=== PATIENT | female | born 1990 | race Hispanic/Latino ===

== ENCOUNTER 2021-10-13 11:38 | Day surgery (SDC) | payer OTHER ==
[2021-10-13 12:22] VITALS: BMI 44.9
[2021-10-13] MEDS ORDERED: hydrALAZINE 20 MG/ML VIAL SLOW IVP PRN (13:10)
[2021-10-13] MEDS ORDERED: Acetaminophen/Codeine 30-300mg Tablet PO SCH (13:15)
== END 2021-10-13 14:05 | disposition home or self-care (01) ==
LOC: CSHLD/OP 11:38
PROVIDERS: ATTEND Student in an Organized Health Care Education/Training Program
DX: O99.891 Other specified diseases and conditions complicating pregnancy (principal); M54.50 Low back pain, unspecified; R10.2 Pelvic and perineal pain; O36.8130 Decreased fetal movements, third trimester, not applicable or unspecified; O99.013 Anemia complicating pregnancy, third trimester; D50.9 Iron deficiency anemia, unspecified; O99.283 Endocrine, nutritional and metabolic diseases complicating pregnancy, third trimester; E03.9 Hypothyroidism, unspecified; O34.219 Maternal care for unspecified type scar from previous cesarean delivery; O99.843 Bariatric surgery status complicating pregnancy, third trimester; Z3A.37 37 weeks gestation of pregnancy; Z79.899 Other long term (current) drug therapy; Z88.8 Allergy status to other drugs, medicaments and biological substances

== ENCOUNTER 2021-10-20 09:38 | Outpatient (CLI) | payer OTHER ==
[2021-10-20 11:15] LABS: Hemoglobin 12.1 g/dL (12.0-15.5); Mean Corpuscular HGB CONC 32.6 g/dL (32.0-36.0); Mean Corpuscular Hemoglobin 31.6 pg (27.0-33.0); Mean Corpuscular Volume 96.9 fl (81.6-98.3); Mean Platelet Volume 10.6 fl (7.4-10.4); Platelet Count 243 10x3/uL (150-450); RBC Distribution Width 13.3 % (11.5-14.5); Red Blood Cell (RBC) Count 3.83 10x6/uL (3.90-5.03); White Blood Cell (WBC) Count 8.2 10x3/uL (3.5-10.5)
[2021-10-20 12:05] LABS: HIV (1/2) Antibody/Antigen Non-Reactive (NonReactive); HIV 1/2 INDEX 0.09 S/CO (<1.00); Hep B Surf Ag Non-Reactive S/CO (NonReactive)
[2021-10-20 12:07] LABS: Syphilis Antibody Nonreactive (Nonreactive); Syphilis Antibody Index 0.16 S/CO (<1.00 Non-Reactive)
[2021-10-21 12:47] LABS: SARS-CoV-2 PCR by NAA Not Detected (NotDetected)
== END 2021-10-20 09:39 | disposition home or self-care (01) ==
LOC: CSHLAB 09:38
PROVIDERS: ATTEND Obstetrics & Gynecology
DX: Z01.812 Encounter for preprocedural laboratory examination (principal); Z20.822 Contact with and (suspected) exposure to COVID-19
CPT/HCPCS: 85027; 86780; 86850; 86900; 86901; 87340; 87389; U0003; U0005

== ENCOUNTER 2021-10-22 05:30 | Inpatient (IN) | payer OTHER ==
[2021-10-22 05:55] VITALS: BMI 44.9
[2021-10-22] MEDS ORDERED: Lactated Ringer's 1,000 ML IV SCH (05:55)
[2021-10-22] MEDS ORDERED: Bicitra 30 ML UDCUP PO PRN (05:55)
[2021-10-22] MEDS ORDERED: hydrALAZINE 20 MG/ML VIAL SLOW IVP PRN ×2 (05:55→10:40)
[2021-10-22] MEDS ORDERED: Promethazine HCl 25 MG/ML VIAL IM PRN ×3 (05:55→10:40)
[2021-10-22] MEDS ORDERED: Famotidine/PF 20 mg/2ml Vial SLOW IVP PRN (05:55)
[2021-10-22] MEDS ORDERED: Ondansetron PF 4 MG/2 ML Vial IVP PRN ×3 (05:55→10:40)
[2021-10-22] MEDS ORDERED: ceFAZolin 2 GM/Dextrose 50 ML 2 GM in Premix Bag 1 BAG IVPB SCH (06:15)
[2021-10-22] MEDS ORDERED: Morphine PF 10 MG/10 ML VIAL ONE (07:29)
[2021-10-22] MEDS ORDERED: Oxytocin 10 UNITS/ML VIAL ONE (07:29)
[2021-10-22] MEDS ORDERED: Dexamethasone 4 mg/ml Vial ONE (07:30)
[2021-10-22] MEDS ORDERED: Ketorolac Tromethamine 30 MG/ML VIAL ONE (07:30)
[2021-10-22] MEDS ORDERED: ePHEDrine Sulfate 50 MG/10 ML VIAL ONE (07:30)
[2021-10-22] MEDS ORDERED: Labetalol HCl 100 MG/20 ML VIAL ONE (07:53)
[2021-10-22] MEDS ORDERED: Tranexamic Acid 1,000 MG/10 ML VIAL ONE (08:22)
[2021-10-22] MEDS ORDERED: Naloxone HCl 0.4 mg/ml Vial IVP PRN ×2 (08:54)
[2021-10-22] MEDS ORDERED: Hydrocerin (Eucerin) Cream 120 gm Jar TOP PRN (08:54)
[2021-10-22] MEDS ORDERED: Promethazine HCl 25 MG SUPP PR PRN (08:54)
[2021-10-22] MEDS ORDERED: diphenhydrAMINE 50 MG/ML VIAL IVP PRN (08:54)
[2021-10-22] MEDS ORDERED: Naloxone HCl 0.4 mg/ml Vial IV PRN (08:54)
[2021-10-22] MEDS ORDERED: Communication Order-Pharmacy FS SCH (09:00)
[2021-10-22] MEDS ORDERED: diphenhydrAMINE 25 MG CAP PO PRN (10:40)
[2021-10-22] MEDS ORDERED: Simethicone Chewable 80 MG TAB PO PRN (10:40)
[2021-10-22] MEDS ORDERED: Acetaminophen 325 MG TAB PO PRN (10:40)
[2021-10-22] MEDS ORDERED: Bisacodyl 10 MG SUPP PR PRN (10:40)
[2021-10-22] MEDS ORDERED: Lanolin Ointment 7 GM TUBE TOP PRN (10:40)
[2021-10-22] MEDS ORDERED: Prenatal Vitamin 1 TAB PO SCH (11:00)
[2021-10-22] MEDS ORDERED: Docusate 100 MG CAP PO SCH (11:00)
[2021-10-22] MEDS ORDERED: Ferrous Sulfate 325 MG TAB PO SCH (11:00)
[2021-10-22] MEDS: Ketorolac Tromethamine 30 MG/ML VIAL IVP PRN ×2 (14:16→19:35)
[2021-10-22] MEDS ORDERED: Meperidine HCl/PF 25 MG/ML VIAL SLOW IVP PRN (14:30)
[2021-10-22] MEDS ORDERED: Meperidine HCl/PF 25 MG/ML VIAL SLOW IVP SCH ×2 (15:00)
[2021-10-22] MEDS: Docusate 100 MG CAP PO SCH (20:45)
[2021-10-22] MEDS: HYDROcodone/Acetaminophen 5/325 mg Tablet PO PRN (20:45)
[2021-10-22] MEDS: Ferrous Sulfate 325 MG TAB PO SCH (20:53)
[2021-10-22] MEDS ORDERED: Zolpidem Tartrate 5 MG TAB PO PRN (21:00)
[2021-10-22] MEDS ORDERED: HYDROcodone/Acetaminophen 5/325 mg Tablet PO PRN (21:00)
[2021-10-23] MEDS: HYDROcodone/Acetaminophen 5/325 mg Tablet PO PRN ×6 (00:49→21:48)
[2021-10-23 06:20] LABS: Hemoglobin 9.1 g/dL (12.0-15.5); Mean Corpuscular HGB CONC 32.3 g/dL (32.0-36.0); Mean Corpuscular Hemoglobin 31.3 pg (27.0-33.0); Mean Corpuscular Volume 96.9 fl (81.6-98.3); Mean Platelet Volume 10.2 fl (7.4-10.4); Platelet Count 171 10x3/uL (150-450); RBC Distribution Width 13.1 % (11.5-14.5); Red Blood Cell (RBC) Count 2.91 10x6/uL (3.90-5.03); White Blood Cell (WBC) Count 8.9 10x3/uL (3.5-10.5)
[2021-10-23] MEDS: Ketorolac Tromethamine 30 MG/ML VIAL IVP PRN (08:37)
[2021-10-23] MEDS: Ferrous Sulfate 325 MG TAB PO SCH ×2 (08:44→21:49)
[2021-10-23] MEDS: Prenatal Vitamin 1 TAB PO SCH (08:44)
[2021-10-23] MEDS: Docusate 100 MG CAP PO SCH ×2 (08:44→21:48)
[2021-10-23] MEDS ORDERED: Boostrix 0.5 ML (Tdap) VIAL IM ONE (10:40)
[2021-10-23] MEDS: Ibuprofen 800 MG TAB PO SCH ×2 (14:40→21:48)
[2021-10-24] MEDS: HYDROcodone/Acetaminophen 5/325 mg Tablet PO PRN ×2 (01:31→05:21)
[2021-10-24] MEDS: Ibuprofen 800 MG TAB PO SCH (05:20)
[2021-10-24] MEDS ORDERED: HYDROcodone/Acetaminophen 7.5/325 mg Tablet PO SCH ×2 (08:00→12:00)
[2021-10-24 09:13] VITALS: BP 125/76; TEMP 98
[2021-10-24] MEDS ORDERED: Levothyroxine Sodium 100 MCG TAB PO SCH (09:15)
[2021-10-24] MEDS: Prenatal Vitamin 1 TAB PO SCH (12:01)
[2021-10-24] MEDS: Docusate 100 MG CAP PO SCH (12:01)
[2021-10-24] MEDS: Ferrous Sulfate 325 MG TAB PO SCH (12:02)
[2021-10-25] MEDS ORDERED: Levothyroxine Sodium 100 MCG TAB PO SCH (06:00)
== END 2021-10-24 12:45 | disposition home or self-care (01) | DRG 788 ==
LOC: CSHLD 05:30 → CSHPP 10:50
PROVIDERS: ADMIT Student in an Organized Health Care Education/Training Program; ATTEND Student in an Organized Health Care Education/Training Program
PROC: 10D00Z1 Extraction of Products of Conception, Low, Open Approach (ICD-10-PCS; principal; 2021-10-22)
DX: O34.211 Maternal care for low transverse scar from previous cesarean delivery (principal); Z3A.39 39 weeks gestation of pregnancy; Z37.0 Single live birth; Z20.822 Contact with and (suspected) exposure to COVID-19; Z88.8 Allergy status to other drugs, medicaments and biological substances; O99.62 Diseases of the digestive system complicating childbirth; K66.0 Peritoneal adhesions (postprocedural) (postinfection)
CPT/HCPCS: 36415; 51702; 85027; 86850; 86900; 86901; J0690; J1100; J1885; J2175; J2274; J2405; J2550; J2590; J7120; S0028

== ENCOUNTER 2025-07-09 09:49 | Inpatient (IN) | payer OTHER ==
[2025-07-08 13:01] LABS: Hematocrit 28.5 % (34.9-44.5); Hemoglobin 8.7 g/dL (12.0-15.5); Platelet Count 277 10x3/uL (150-450)
[2025-07-08 13:39] LABS: Syphilis Antibody Index 0.50 S/CO (<1.00 Non-Reactive)
[2025-07-08 13:42] LABS: HIV (1/2) Antibody/Antigen Non-Reactive (NonReactive); HIV 1/2 INDEX 0.22 S/CO (<1.00); Hep B Surf Ag Non-Reactive S/CO (NonReactive)
[~2025-07-09 09:49] MED LIST: Bicitra 30 ML UDCUP PO PRN; Ondansetron PF 4 MG/2 ML Vial IVP PRN; Oxytocin 30 units/NS 500 ML 500 ML IV SCH; hydrALAZINE 20 MG/ML VIAL SLOW IVP PRN
[2025-07-09 10:31] VITALS: BMI 42.0
[2025-07-09] MEDS: Famotidine/PF 20 mg/2ml Vial SLOW IVP PRN (10:33)
[2025-07-09] MEDS ORDERED: Ondansetron PF 4 MG/2 ML Vial IVP PRN ×3 (13:12→13:15)
[2025-07-09] MEDS ORDERED: diphenhydrAMINE 25 MG CAP PO PRN (13:12)
[2025-07-09] MEDS ORDERED: Oxytocin 30 units/NS 500 ML 500 ML IV SCH (13:15)
[2025-07-09] MEDS ORDERED: Ketorolac Tromethamine 30 MG (1 mL) VIAL IVP SCH (13:15)
[2025-07-09] MEDS ORDERED: Communication Order-Pharmacy FS SCH (13:15)
[2025-07-09] MEDS ORDERED: Meperidine HCl/PF 25 MG (1 mL) VIAL SLOW IVP PRN (13:15)
[2025-07-09] MEDS ORDERED: HYDROmorphone 0.5 MG/0.5 ML SYRINGE SLOW IVP PRN (13:15)
[2025-07-09] MEDS ORDERED: diphenhydrAMINE 50 MG/ML VIAL IVP PRN (13:15)
[2025-07-09] MEDS: PHENYLEPHRINE-NS 100 MCG/ML 10 ML SYRINGE ONE (15:33)
[2025-07-09] MEDS: Tranexamic Acid 1,000 MG/10 ML VIAL ONE (15:33)
[2025-07-09] MEDS: Oxytocin 10 UNITS/ML VIAL ONE (15:33)
[2025-07-09] MEDS: Oxytocin 30 units/NS 500 ML 500 ML ONE (15:33)
[2025-07-09] MEDS: Methylergonovine 0.2 MG/ML VIAL ONE (15:33)
[2025-07-09] MEDS: Ondansetron PF 4 MG/2 ML Vial ONE (15:33)
[2025-07-09] MEDS: Erythromycin Base 0.5% Oint 1 GM TUBE ONE (15:33)
[2025-07-09] MEDS: Boostrix 0.5 ML (Tdap) VIAL (>/=7 yrs of age) IM ONE (15:34)
[2025-07-09] MEDS: hydrALAZINE 20 MG/ML VIAL SLOW IVP PRN (17:08)
[2025-07-09] MEDS ORDERED: hydrALAZINE 20 MG/ML VIAL SLOW IVP PRN (18:31)
[2025-07-09] MEDS: NIFEdipine XL 60 MG ER.TAB PO SCH (18:36)
[2025-07-09] MEDS: Ketorolac Tromethamine 30 MG (1 mL) VIAL IVP PRN (19:33)
[2025-07-10] MEDS: HYDROcodone/Acetaminophen 5/325 mg Tablet PO PRN (01:03)
[2025-07-10] MEDS ORDERED: HYDROcodone/Acetaminophen 5/325 mg Tablet PO PRN (02:15)
[2025-07-10 05:55] LABS: Hematocrit 23.6 % (34.9-44.5); Hemoglobin 7.4 g/dL (12.0-15.5); Mean Corpuscular Hemoglobin 26.3 pg (27.0-33.0); Mean Corpuscular Volume 84.0 fL (81.6-98.3); Platelet Count 238 10x3/uL (150-450); Red Blood Cell (RBC) Count 2.81 10x6/uL (3.90-5.03); White Blood Cell (WBC) Count 9.27 10x3/uL (3.5-10.5)
[2025-07-10] MEDS: Sertraline 25 MG TAB PO SCH (09:01)
[2025-07-10] MEDS: HYDROcodone/Acetaminophen 10/325 mg Tablet PO SCH (09:01)
[2025-07-10] MEDS: NIFEdipine XL 60 MG ER.TAB PO SCH (09:01)
[2025-07-10] MEDS: Simethicone Chewable 80 MG TAB PO PRN (15:32)
[2025-07-10] MEDS: Ibuprofen 800 MG TAB PO SCH (21:43)
[2025-07-11] MEDS: Pantoprazole 40 MG VIAL IVP SCH (08:36)
[2025-07-11] MEDS: HYDROcodone/Acetaminophen 10/325 mg Tablet PO SCH (12:06)
[2025-07-11] MEDS: Ibuprofen 800 MG TAB PO SCH (17:06)
[2025-07-12] MEDS ORDERED: Sertraline 25 MG TAB PO SCH (09:00)
[2025-07-12 13:02] VITALS: TEMP 98.3
[2025-07-12 14:31] VITALS: BP 141/79
== END 2025-07-12 13:20 | disposition home or self-care (01) | DRG 788 ==
LOC: CSHLD 09:49 → CSHPP 15:39
PROVIDERS: ADMIT Obstetrics & Gynecology; ATTEND Obstetrics & Gynecology
PROC: 10D00Z1 Extraction of Products of Conception, Low, Open Approach (ICD-10-PCS; principal; 2025-07-09)
DX: O34.219 Maternal care for unspecified type scar from previous cesarean delivery (principal); O99.214 Obesity complicating childbirth; Z90.49 Acquired absence of other specified parts of digestive tract; Z98.84 Bariatric surgery status; Z37.0 Single live birth; Z3A.39 39 weeks gestation of pregnancy; Z79.890 Hormone replacement therapy; Z79.899 Other long term (current) drug therapy
CPT/HCPCS: 51702; 85014; 85018; 85027; 85049; 86780; 86850; 86900; 86901; 87340; 87389; J0360; J1885; J2274; J2405; J2470; J2590; J3010